=== PATIENT | male | born 2000 | race Hispanic/Latino ===

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

== ENCOUNTER → 2025-06-12 12:38 | Outpatient (CLI) | payer OTHER, SELFPAY ==
[2025-06-12 13:47] LABS: Add Manual Diff / Slide Review NO; Hematocrit 46.5 % (41-53); Hemoglobin 16.0 g/dL (13.5-17.5); Lymphocytes Absolute Auto 1200 /uL (1100-4500); Mean Corpuscular HGB Conc 34.3 % (30-36); Mean Corpuscular Hemoglobin 29.8 PG (26-34); Mean Corpuscular Volume 86.8 fL (80-100); Platelet Count 183 X10^3/uL (150-400)
[2025-06-12 14:28] LABS: Hemoglobin A1C% w Est Avg Glu 5.4 % (4.0-6.0)
[2025-06-12 15:25] LABS: Alanine Aminotransferase 35 IU/L (<50); Albumin 5.0 g/dL (3.5-5.0); Albumin Globulin Ratio 1.6 (1.0-2.8); Alkaline Phosphatase 80 U/L (38-126); Blood Urea Nitrogen 20 mg/dL (9-20); Calcium 10.2 mg/dL (8.4-10.2); Carbon Dioxide 28 mmol/L (22-32); Chloride 101 mmol/L (98-107); Estimated Glomerular Filt Rate > 60 mL/min (>60); Globulin 3.1 g/dL (1.7-4.1); Glucose 75 mg/dL (70-99); HEMOLYSIS < 15 (0-50); Potassium 4.1 mmol/L (3.4-5.1); Sodium 138 mmol/L (137-145); Total Protein 8.1 g/dL (6.3-8.2)
[2025-06-12 15:44] LABS: Vitamin D 25 Hydroxy (D3) 85.6 ng/mL (30.0-100.0)
[2025-06-12 15:56] LABS: TSH w/ Reflex to FT4 1.31 uIU/mL (0.47-4.68)
[2025-06-12 16:15] LABS: Vitamin B12 914 pg/mL (239-931)
== END ==
PROVIDERS: PCP Family Medicine; Referring Provider Family Medicine; Visit Provider Family Medicine
DX: F32.A Depression, unspecified (principal); N52.9 Male erectile dysfunction, unspecified
CPT/HCPCS: 36415; 80053; 82306; 82607; 83036; 84402; 84403; 84443; 85025

== ENCOUNTER → 2025-07-06 16:20 | Outpatient (CLI) | payer OTHER, SELFPAY | LOC: LAB 16:21 | PROVIDERS: PCP Family Medicine; Referring Provider Family Medicine; Visit Provider Family Medicine | DX: N52.9 Male erectile dysfunction, unspecified (principal) | CPT/HCPCS: 84402; 84403 ==